=== PATIENT | female | born 1960 | race Caucasian/White ===

== ENCOUNTER 2023-07-25 00:27 | Emergency (ER) | payer MEDICARE, OTHER ==
[~2023-07-25] VITALS: Ht 162.6 cm; Wt 70.0 kg
[2023-07-25 02:26] VITALS: PULSE 88; RESP 18; O2SAT 99
[2023-07-25 02:37] VITALS: BP 117/53; PULSE 92; RESP 16; TEMP 97.5; O2SAT 91
== END 2023-07-25 02:40 | disposition short-term general hospital (02) ==
LOC: EDBD 00:27 → ER 00:27
DX: T74.21XA Adult sexual abuse, confirmed, initial encounter (principal); E11.9 Type 2 diabetes mellitus without complications; E78.5 Hyperlipidemia, unspecified; I10 Essential (primary) hypertension; F17.210 Nicotine dependence, cigarettes, uncomplicated